=== PATIENT | female | born 1955 | race Caucasian/White ===

== ENCOUNTER → 2019-02-03 14:00 | Oncology outpatient (ONC) | payer MEDICARE, OTHER, SELFPAY ==
[2018-10-06] MEDS: ALTEPLASE 2 MG/2 ML VIAL IV (15:03)
== END ==
PROVIDERS: Visit Provider Internal Medicine Geriatric Medicine
DX: Z45.2 Encounter for adjustment and management of vascular access device (principal); C21.1 Malignant neoplasm of anal canal
CPT/HCPCS: 96374; 96523; J2997